=== PATIENT | male | born 1995 | race Caucasian/White ===

== ENCOUNTER 2020-06-04 07:40 | Emergency (ER) | payer SELFPAY ==
[~2020-06-04] VITALS: Ht 185.4 cm; Wt 63.5 kg
[~2020-06-04 07:40] MED LIST: ACETAMINOHPEN/C1 TAB PO; ANAPROX DS550 MG PO; ATARAX25 MG PO; AVPAK AZITHROM250 M1 PO; FAMOTIDINE20 M1 PO; LIDEX0.05% T; MELOXICAM7.5 MG PO; MOTRIN400 MG PO; MOTRIN600 MG PO; MOTRIN800 MG PO; NAPROSYN500 MG PO; NKHM; OMEPRAZOLE20 MG PO; TRIMOX500 MG PO; TYLENOL500 MG PO; ZOFRAN ODT4 MG SL
== END 2020-06-04 08:42 | disposition home or self-care (01) ==
LOC: ED 07:40
DX: K13.79 Other lesions of oral mucosa (principal); F17.200 Nicotine dependence, unspecified, uncomplicated

== ENCOUNTER 2020-10-07 10:32 | Emergency (ER) | payer SELFPAY ==
[~2020-10-07] VITALS: Ht 185.4 cm; Wt 61.2 kg
== END 2020-10-07 13:39 | disposition home or self-care (01) ==
LOC: ED 10:32
DX: M79.642 Pain in left hand (principal)

== ENCOUNTER 2021-02-12 13:06 | Emergency (ER) | payer OTHER ==
[~2021-02-12] VITALS: Ht 185.4 cm; Wt 59.0 kg
[2021-02-12] MEDS ORDERED: SEPTDS PO (18:25)
== END 2021-02-12 18:57 | disposition home or self-care (01) ==
LOC: ED 13:06
DX: S61.011A Laceration without foreign body of right thumb without damage to nail, initial encounter (principal); W26.8XXA Contact with other sharp object(s), not elsewhere classified, initial encounter; Y93.89 Activity, other specified; Y92.89 Other specified places as the place of occurrence of the external cause; Y99.8 Other external cause status

== ENCOUNTER 2021-03-22 22:31 | Emergency (ER) | payer SELFPAY ==
[~2021-03-22] VITALS: Ht 185.4 cm; Wt 61.2 kg
[~2021-03-22 22:31] MED LIST changes: +SEPTDS PO
[2021-03-22 23:04] LABS: BASO % 0.4 % (0.0-1.0); EOS # 0.1 10*3/uL (0.0-0.4); HEMATOCRIT 38.6 % (42.0-52.0); LYMPH # 3.7 10*3/uL (1.3-4.4); LYMPH % 38.5 % (27.0-41.0); MEAN CELL VOLUME 86.7 fl (80.0-94.0); MEAN CORPUSCULAR HGB 29.2 pg (27.0-31.0); MEAN CORPUSCULAR HGB CONC 33.7 g/dl (33.0-37.0); MEAN PLATELET VOLUME 9.1 fl (9.6-12.3); MONO # 0.8 10*3/uL (0.1-1.0); MONO % 8.1 % (3.0-9.0); NEUT % 51.8 % (47.0-73.0); PLATELET COUNT AUTOMATED 307 10*3/uL (130-400); RED BLOOD COUNT 4.45 10*6/uL (4.50-5.90); RED CELL DISTRI WIDTH 12.5 % (0-14.5); WHITE BLOOD COUNT 9.7 10*3/uL (4.8-10.8)
[2021-03-22 23:19] LABS: ALBUMIN 4.2 gm/dl (3.1-4.5); ALKALINE PHOSPHATASE 103 U/L (45-117); BUN 7 mg/dl (7-24); CHLORIDE 107 mmol/L (98-107); CREATININE 0.98 mg/dL (0.70-1.30); POTASSIUM 3.6 mmol/L (3.5-5.1); SGOT/AST 14 IU/L (3-35); SGPT/ALT 20 U/L (12-78); SODIUM 139 mmol/L (136-145); TOTAL PROTEIN 7.7 gm/dL (6.4-8.2)
[2021-03-23] MEDS ORDERED: AMOXICILLIN500 M2 PO (00:50)
== END 2021-03-23 01:14 | disposition home or self-care (01) ==
LOC: ED 22:31
PROVIDERS: Emergency Medicine
DX: J02.9 Acute pharyngitis, unspecified (principal); F45.8 Other somatoform disorders; F17.200 Nicotine dependence, unspecified, uncomplicated

== ENCOUNTER 2022-12-15 17:44 | Emergency (ER) | payer SELFPAY ==
[~2022-12-15] VITALS: Ht 185.4 cm; Wt 63.5 kg
[~2022-12-15 17:44] MED LIST changes: +AMOXICILLIN500 M2 PO
== END 2022-12-15 21:17 | disposition home or self-care (01) ==
LOC: ED 17:44
DX: S05.01XA Injury of conjunctiva and corneal abrasion without foreign body, right eye, initial encounter (principal); F31.9 Bipolar disorder, unspecified; Z91.018 Allergy to other foods; W22.8XXA Striking against or struck by other objects, initial encounter; Y93.89 Activity, other specified; Y92.89 Other specified places as the place of occurrence of the external cause; Y99.8 Other external cause status

== ENCOUNTER 2023-04-21 02:13 | Emergency (ER) | payer SELFPAY ==
[~2023-04-21] VITALS: Ht 185.4 cm; Wt 61.2 kg
== END 2023-04-21 05:59 | disposition left against medical advice (07) ==
LOC: ED 02:13
DX: S60.221A Contusion of right hand, initial encounter (principal); F31.9 Bipolar disorder, unspecified; Z91.018 Allergy to other foods; W22.03XA Walked into furniture, initial encounter; Y93.89 Activity, other specified; Y92.89 Other specified places as the place of occurrence of the external cause; Y99.8 Other external cause status

== ENCOUNTER 2023-10-19 23:16 | Emergency (ER) | payer SELFPAY ==
[~2023-10-19] VITALS: Ht 185.4 cm; Wt 63.5 kg
[2023-10-20] MEDS ORDERED: Acetaminophen/Oxycodone 5 MG/325 MG TABLET PO ONE (00:40)
[2023-10-20] MEDS ORDERED: IBUPROFEN 800 MG TAB PO ONE (00:40)
== END 2023-10-20 01:31 | disposition home or self-care (01) ==
LOC: ED 23:16
DX: S43.402A Unspecified sprain of left shoulder joint, initial encounter (principal); W06.XXXA Fall from bed, initial encounter; Y93.89 Activity, other specified; Y92.89 Other specified places as the place of occurrence of the external cause; Y99.8 Other external cause status; F17.200 Nicotine dependence, unspecified, uncomplicated; Z91.018 Allergy to other foods

== ENCOUNTER 2024-03-29 10:50 | Emergency (ER) | payer OTHER ==
[~2024-03-29] VITALS: Wt 63.5 kg
== END 2024-03-29 12:28 | disposition home or self-care (01) ==
LOC: ED 10:50
DX: S60.222A Contusion of left hand, initial encounter (principal); Z91.010 Allergy to peanuts; W22.8XXA Striking against or struck by other objects, initial encounter; Y93.89 Activity, other specified; Y92.098 Other place in other non-institutional residence as the place of occurrence of the external cause; Y99.8 Other external cause status